=== PATIENT | female | born 1940 | race Caucasian/White ===

== ENCOUNTER → 2016-06-25 | Outpatient (CLI) | payer MEDICARE, BC ==
[~2016-06-25] MED LIST: ASPIRIN EC81 MG PO; CRANBERRY200 MG PO; FISH OIL1000 MG PO; LEVOTHROID (SY50 MCG PO; LIPITOR20 M1 PO; MUCINEX DM ER1 EAC1 PO; NORCO 5-325 MG1 TAB PO; NORCO 5-325 TA1 EACH PO; ZOCOR40 MG PO
== END | disposition disaster alternative care site (69) ==
LOC: GRAD 12:18
DX: M54.2 Cervicalgia (principal); M47.12 Other spondylosis with myelopathy, cervical region; M47.22 Other spondylosis with radiculopathy, cervical region; M48.02 Spinal stenosis, cervical region

== ENCOUNTER 2016-08-30 05:51 | Inpatient (IN) | payer MEDICARE, BC ==
[~2016-08-30] VITALS: Ht 167.6 cm; Wt 84.0 kg
--- NOTE | ~2016-08-30 | OR ---
PATIENT'S NAME: SAUMYA MOJICA [facility] AGE: 76 Y [address] ROOM: [id number] [place], [place] [id number] LOCATION: [facility] ADMIT DATE: 08/30/2016 OR/Procedure Report DISCHARGE DATE: FAMILY PHYSICIAN: Annie Corona ATTENDING PHYSICIAN: Claudia Bustos SURGEON: Claudia Bustos MD TERRITORY ACCOUNT MANAGER: Kelly Gibbs. DATE OF PROCEDURE: 08/30/2016 PREOPERATIVE DIAGNOSIS: Cervical spondylosis with radiculopathy. POSTOPERATIVE DIAGNOSIS: Cervical spondylosis with radiculopathy. PROCEDURES PERFORMED: 1. Anterior cervical diskectomy with decompression of neural elements and foraminotomy at C3-4. 2. Structural and morselized allograft fusion at C3-4. 3. Use of operative microscope. ANESTHESIA: General. ANESTHESIA PROVIDER: Georges Quiros MD HISTORY: The patient is a 76-year-old female who presented with numbness at the tips of the fingers on both hands. The fingers affected most were the thumb and little fingers. The patient also had difficulty clenching her fist with the left hand. She had had previous anterior cervical diskectomy 2 years ago and did very well after the procedure. With return of her symptoms this time, a repeat MRI scan was done. 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 I felt that this could be contributing to or responsible for the patient's symptoms and, therefore, recommended surgery. The above procedure, together with the benefits and risks were discussed with the patient. With her consent, she was brought to the operating room for surgery. PROCEDURE IN DETAIL: In the operating room, the patient was placed in a supine position. Anesthesia was induced, and she was intubated. A roll was placed under her shoulders, and her head was supported in a gel donut. The incision line was marked out on the right side of her neck, just an extension of the original incision she had. The whole area was prepped and draped in a sterile manner. Local anesthesia was infiltrated along the incision line. A #10 blade was used to open the incision. Dissection was carried out along the anterior border of the sternomastoid muscle. We encountered some scar tissue, PATIENT'S NAME: EGLE, SAUMYA A [facility] AGE: 76 Y [address] ROOM: [id number] [place], [place] [address] LOCATION: [facility] ADMIT DATE: 08/30/2016 OR/Procedure Report DISCHARGE DATE: FAMILY PHYSICIAN: Annie Corona ATTENDING PHYSICIAN: Claudia Bustos but it was possible to develop a plane all the way down to the anterior surface of the spine. Before long, we could see the plate used for the previous surgery. I knew that the problem disk was just rostral to the end of the plate, and this area was then dissected until we had good clearance on the anterior surface of the spine. The longus colli muscles were undermined, and self-retaining retractors were placed. Intraoperative x-ray was obtained to verify our level. The Leksell rongeur was used to remove the bone spurs obscuring the disk space. Diskectomy was then carried out at the C3-4 level. It was a very narrow disk space, and the disk material was removed using the #15 blade to incise it and pituitary rongeur to pull it out. A curette was used to scrape out more disk, which was removed. The drill was then used to drill down the endplates on both sides and also to deepen the diskectomy until we got to the posterior longitudinal ligament. Microscope was brought in, and under microscopic vision, the posterior longitudinal ligament was opened, and the posterior osteophytes were removed. The dura began to bulge back into the disk space as the decompression progressed. Bilateral foraminotomies were also carried out at the C3-4 level. Having completed the decompression, attention was directed to the fusion. Appropriate-sized piece of allograft bone was selected, and this allograft bone was filled with demineralized bone matrix. The bone grafts containing demineralized bone matrix was then inserted into the disk space. We had a very snug fit. Another x-ray was obtained to confirm that the graft was in good position. Irrigation was then used to wash out debris, and final hemostasis was achieved. The incision was closed with appropriate suture materials. A sterile dressing was applied. The patient's anesthesia was reversed. She was extubated and taken to the recovery room to complete her recovery. I was present at and performed every aspect of this procedure, assisted at different stages by operating room nurses. There were no apparent intraoperative complications. Swabs, needles, and instruments were accounted for at the end of the case. Estimated blood loss was less than 100 mL, and there was no reason for a blood transfusion. I expect the patient to benefit from this procedure. In particular, I expect she should be able to make a fist with her left hand once again. CLAUDIA BUSTOS MD PATIENT'S NAME: SAUMYA MOJICA [facility] AGE: 76 Y [address] ROOM: [place] [address] LOCATION: [facility] ADMIT DATE: 08/30/2016 OR/Procedure Report DISCHARGE DATE: FAMILY PHYSICIAN: Annie Corona ATTENDING PHYSICIAN: Claudia BustosO/bobl /[id number] d: 08/30/16 1525 t: 09/12/16 1633, OPERATIVE SUMMARY
[~2016-08-30 05:51] MED LIST changes: -NORCO 5-325 TA1 EACH PO
--- NOTE | 2016-08-30 15:38 | NUR ---
Attempted to see pt for evaluation. Pt reports she has already been up to the bathroom and had no problems but wanted to rest at this time. Will attempt to see pt tomorrow morning for evaluation. Maday Santamaria, PT
--- NOTE | 2016-08-30 17:08 | NUR ---
Significant Event: UP TO FLOOR FROM PACU AT 1120. R) ANTERIOR DRESSING C/D/I. CSM ASSESSMENTS WNL TO BILATERAL UPPER AND LOWER EXTREMITIES. AMBULATES TO BATHROOM WITH SBA, USE OF GAIT BELT, TOLERATES WELL. BILATERAL KNEE HIGH MITUL HOSE AND LEG PUMPS ON. RATED R) ANTERIOR NECK PAIN 4-0 ON PAIN SCALE, REFUSED OFFERED PAIN MEDICATION. SOFT COLLAR IN PLACE. Follow up:
--- NOTE | 2016-08-31 03:12 | NUR ---
Significant Event:Pt alert and orientedx4.very pleasant with staff and cares. up with 1 assist stand by, dressing to right neck is c/d/i. soft collar in place at all times. pt denies pain when asked. did takes 1 norco at hs to stay ahead of pain. pt ambulates in mejia 1x with stand by assist. voids with no complicaations noted. pt can be bradycardic at times. heart rates drops to the upper 40's. does come up when awaken. on continous pulse ox. sats remain above 90% on 1L. pt denies any numbness/tingling, states she was not able to use left hand prior to surgery and is not able to and has all sensation to bilatearl arm and lower extremites. pt is able to make needs known. Follow up:
--- NOTE | 2016-08-31 12:26 | NUR ---
Introduced self and care management services to patient and spouse at bedside. Lives in [place], planning on going home today. Denies concerns about going home on discharge, denies needs. Spouse will assist at home as needed. Will follow.
[2016-08-31] MEDS ORDERED: NORCO 5-325 TA1 EACH PO (12:59)
== END 2016-08-31 13:29 | disposition disaster alternative care site (69) | DRG 473 ==
LOC: G3N 05:51 → GSDC 05:51 → G3N 11:07 → GSDC 11:08 → G3N 08-31 13:29
PROVIDERS: ADMIT Neurological Surgery
DX: M47.22 Other spondylosis with radiculopathy, cervical region (principal)
CPT/HCPCS: C1713; J1100; J2001; J2405; J3370; J7030; J7120